=== PATIENT | female | born 1985 | race Caucasian/White ===

== ENCOUNTER → 2024-08-01 09:35 | Outpatient (REF) | payer OTHER, SELFPAY ==
[2024-08-01 16:14] LABS: Mumps Virus IgG Equivocal; Rubeola (Measles) IgG Equivocal; Varicella Zoster IgG (VZV) Positive
[2024-08-01 19:05] LABS: Hepatitis B Surface Antibody Positive
[2024-08-01 19:24] LABS: Rubella Positive
[2024-08-03 19:03] LABS: Quantiferon Mitogen minus NIL 9.91 IU/mL; Quantiferon NIL 0.09 IU/mL; Quantiferon Plus TB1 minus NIL 0.01 IU/mL (<=0.34); Quantiferon Plus TB2 minus NIL 0.01 IU/mL (<=0.34); Quantiferon TB Gold Plus Negative (Negative)
== END ==
LOC: OHS 09:35
PROVIDERS: ATTENDING PHYSICIAN Nurse Practitioner Family
DX: Z23 Encounter for immunization (principal)
CPT/HCPCS: 36415; 86480; 86706; 86735; 86762; 86765; 86787